=== PATIENT | male | born 1960 | race Caucasian/White ===

== ENCOUNTER 2016-08-07 07:19 | Day surgery (SDC) | payer OTHER ==
[2016-08-06 11:04] VITALS: BMI 20.3
--- NOTE | 2016-08-07 06:22 | HP ---
History & Physical Update - History History: No Change - Physical Physical: No Change - Assessment Assessment: No Change - Plan Plan: No Change
[~2016-08-07 07:19] MED LIST: CYCLOPENTOLATE HCL 1% OPHTH SOLN 2 ML BOTTLE OP SCH; MOXIFLOXACIN HCL 0.5% OPHTHALMIC 3 ML BOTTLE OP SCH; PHENYLEPHRINE 2.5% OPHTH SOLN 15 ML BOTTLE OP SCH; TOBRA 0.3%/DEXAMETH 0.1% OPHTHALMIC SUSP 2.5 ML BTL TP ONE; TROPICAMIDE 1% OPHTH SOLN 15 ML BOTTLE OP SCH
[2016-08-07] MEDS ORDERED: TRYPAN BLUE 0.5 ML DISP.SYRIN ONE (07:34)
[2016-08-07] MEDS ORDERED: LIDOCAINE HCL/PF 1% SDV 5ML VIAL ONE (07:34)
[2016-08-07] MEDS ORDERED: TOBRA 0.3%/DEXAMETH 0.1% OPHTHALMIC SUSP 2.5 ML BTL ONE (07:34)
[2016-08-07 07:36] VITALS: TEMP 97.9
[2016-08-07] MEDS ORDERED: MOXIFLOXACIN HCL 0.5% OPHTHALMIC 3 ML BOTTLE OS ONE ×3 (07:50→08:10)
[2016-08-07] MEDS ORDERED: PHENYLEPHRINE 2.5% OPHTH SOLN 15 ML BOTTLE OS ONE ×3 (07:50→08:10)
[2016-08-07] MEDS ORDERED: CYCLOPENTOLATE HCL 1% OPHTH SOLN 2 ML BOTTLE OS ONE ×3 (07:50→08:10)
[2016-08-07] MEDS ORDERED: TROPICAMIDE 1% OPHTH SOLN 15 ML BOTTLE OS ONE ×3 (07:50→08:10)
[2016-08-07] MEDS ORDERED: MIDAZOLAM HCL 2 MG/2 ML SINGLE DOSE VIAL ONE (09:18)
[2016-08-07] MEDS ORDERED: TETRACAINE 0.5% OPHTH SOLN 2 ML BOTTLE OS ONE (09:32)
[2016-08-07] MEDS ORDERED: POVIDONE-IODINE 5% OPHTHALMIC PREP 30 ML SOLUTION OS ONE (09:36)
[2016-08-07] MEDS ORDERED: EPINEPHrine/PF 1 MG/1 ML (1:1,000) AMPULE SQ ONE (09:44)
[2016-08-07] MEDS ORDERED: LIDOCAINE HCL 1% PRESERVATIVE FREE - 30ML VIAL IO ONE (09:44)
[2016-08-07] MEDS ORDERED: BSS (NA/CA/MG/K) BALANCED SALT SOLUTION OPHTH SOLN 15 ML BOTTLE OS ONE (09:44)
[2016-08-07] MEDS ORDERED: CHONDROITIN SU A/HYALUR SOD 1 KIT IO ONE (09:44)
[2016-08-07] MEDS ORDERED: TRYPAN BLUE 0.5 ML DISP.SYRIN IO ONE (09:44)
[2016-08-07] MEDS ORDERED: TOBRA 0.3%/DEXAMETH 0.1% OPHTHALMIC SUSP 2.5 ML BTL TP ONE (10:21)
[2016-08-07 11:53] VITALS: BP 126/78; PULSE 60
--- NOTE | 2016-08-08 12:55 | OP ---
DATE OF OPERATION: 08/07/2016 SURGEON: Fede Joseph MD PREOPERATIVE DIAGNOSIS: Cataract, left eye. OPERATION: Phacoemulsification and intraocular lens implantation, left eye. POSTOPERATIVE DIAGNOSIS: Cataract, left eye. ANESTHESIA: Topical. COMPLICATIONS: None. BLOOD LOSS: None. SPECIMENS: None. BRIEF HISTORY: The patient is a 56-year-old man with a past medical history of high cholesterol who presented with decreased vision in the left eye down to 20/40 due to a 1+ nuclear sclerotic lens with anterior cortical changes and posterior changes. After the risks, benefits, and alternatives to cataract surgery were discussed with the patient, he consented to surgery for the left eye. The patient was brought to the operating room and prepped and draped in the usual sterile fashion and the eyelid speculum was inserted in the left eye. A paracentesis was made and the anterior chamber was inflated with nonpreserved lidocaine. This was followed by injection of air, trypan blue dye, and Viscoat. At this point, due to the poorly dilating pupil down to 4 mm, it was determined to use 5 iris hooks in order to enlarge and stabilize the iris. This was done without incident. A groove was made into superotemporal clear cornea which was tunneled forward with a crescent blade. The anterior chamber was entered with a 2.75 keratome. The cystotome was used to make an incision in the center of the capsule and a continuous curvilinear capsulorrhexis was created. The lens was hydrodissected until it was found to rotate freely within the capsular bag. Phacoemulsification was then used to remove the lens in its entirety. Irrigation and aspiration were used to remove residual cortical material. At this point, it was noticed that there was a tear in the anterior capsule close to the paracentesis. This was picked up with the capsulorrhexis forceps and evened out with the rest of the capsulorrhexis without incident so that there was no longer a rent. The anterior chamber and capsular bag were reinflated with Provisc and a 21.0-diopter SN60WF AcrySof intraocular lens was injected into the capsular bag using the monarch injector. The lens was dialed into place using a Sinskey hook. Irrigation and aspiration were used to remove residual viscoelastic. The 5 previously placed iris hooks were removed without incident. The wound was stromally hydrated until it was found to be watertight and the eye was noted to have an appropriate pressure. The lid speculum was removed from the eye and TobraDex drops and a clear shield were placed over the left eye. The patient was transferred to the recovery room in stable condition and will follow up tomorrow. FEDE JOSEPH M.D. [id number] MTDD
== END 2016-08-07 11:10 | disposition home or self-care (01) ==
LOC: JASU-SURG 07:19
PROVIDERS: ATTEND Ophthalmology
PROC: 08RK3JZ Replacement of Left Lens with Synthetic Substitute, Percutaneous Approach (ICD-10-PCS; principal; 2016-08-07 09:00)
DX: H25.12 Age-related nuclear cataract, left eye (principal); H57.04 Mydriasis

== ENCOUNTER 2019-04-23 05:25 | Day surgery (SDC) | payer OTHER ==
[2019-04-22 17:22] VITALS: BMI 20.9
[2019-04-23] MEDS ORDERED: mitoMYcin 40 MG/50 ML DISP.SYRIN (FOR OR USE) IC ONE (14:00)
[2019-04-23] MEDS ORDERED: MIDAZOLAM HCL 2 MG/2 ML SINGLE DOSE VIAL ONE (14:54)
[2019-04-23] MEDS ORDERED: PROPOFOL 20 ML ONE (14:54)
[2019-04-23] MEDS ORDERED: ACETAMINOPHEN 1000 MG/100 ML VIAL (NON FORMULARY) IVPB ONE (14:58)
--- NOTE | 2019-04-23 14:59 | HP ---
History & Physical Update - History History: No Change - Physical Physical: No Change - Assessment Assessment: No Change - Plan Plan: No Change
[2019-04-23] MEDS ORDERED: DEXTROSE 5%-0.45% SALINE 1,000 ML IV SCH (15:00)
[2019-04-23] MEDS ORDERED: ceFAZolin SODIUM 1 GM VIAL ONE (15:22)
[2019-04-23] MEDS ORDERED: ceFAZolin SODIUM 1 GM VIAL IVPB ONE (15:32)
[2019-04-23] MEDS ORDERED: ACETAMINOPHEN INJECTION 100 ML IVPB ONE (16:03)
--- NOTE | 2019-04-23 16:43 | OP ---
DATE OF OPERATION: 04/23/2019 PREOPERATIVE DIAGNOSIS: Bladder cancer, lateral sidewall. POSTOPERATIVE DIAGNOSIS: Bladder cancer, lateral sidewall. PROCEDURE: Cystoscopy, transurethral resection of bladder tumor. ANESTHESIA: General. FINDINGS: A papillary tumor on the left bladder neck and lateral wall. SPECIMEN: Parts of bladder tumor. ESTIMATED BLOOD LOSS: Minimal. DRAINS: Sandhu catheter. PREOPERATIVE INDICATIONS: Patient is a 58-year-old male who presents with gross hematuria. He is a longtime smoker. The CAT scan was negative; however, cystoscopy in the office revealed a large papillary tumor along the left side of his bladder. DESCRIPTION OF PROCEDURE: The patient was brought to the OR. Placed on the table in the supine position. Given general anesthesia and IV antibiotics and placed in a modified lithotomy position. The groin was prepped and draped sterilely. Cystoscopy was performed. The urethra and the prostate appeared to be unremarkable. The bladder was examined. There were mild trabeculations throughout. The large papillary bladder tumor that was seen in the office was again seen from the left bladder neck posteriorly to the left posterior wall. Bipolar unit was used, and the tumor was resected as well as muscularis tumor below the tumor. During 1 portion of the resection, an obturator reflex was encountered despite the use of a bipolar unit. This created movement of his leg, which created deeper resection in his lateral/bladder wall than intended. No evidence of bleeding was seen. The bladder itself maintained the fluid, and his abdomen remained flat and soft. However, because of this, intended mitomycin was not given. The bladder tumors were irrigated out using [facility] evacuator. Again, the scope was replaced, and no evidence of bleeding was seen. The area of resection was very distal in the bladder at the bladder neck. An 18-Slovak Sandhu catheter was left in place for postoperative urinary drainage, and clear efflux was seen. Both UOs were examined after the resection as well and were well away from the area of resection and had clear efflux bilaterally. Patient was woken up, sent to the recovery room with a Sandhu catheter. HARDIK FELDER M.D. [id number]
[2019-04-23 18:36] VITALS: BP 145/80; PULSE 67; TEMP 98
--- NOTE | 2019-04-27 15:50 | PATH ---
Surgical Pathology Report Patient Name: ERIC VEGA [facility]. Rec. #: [id number] /Age/Gender: 1960 (Age: 58) / M Account: [id number] Location: [facility] SURGICAL Taken: 04/23/2019 Received: 04/24/2019 Reported: 04/27/2019 Physicians: Sudhakar Kirk M.D. Specimen(s) Received BLADDER CHIPS Clinical History Bladder cancer Final Diagnosis BLADDER CHIPS, TRANSURETHRAL RESECTION OF BLADDER TUMOR: LOW GRADE PAPILLARY UROTHELIAL CARCINOMA, NON-INVASIVE. MUSCULARIS PROPRIA IDENTIFIED. NO FLAT CARCINOMA IN SITU (CIS) IDENTIFIED. Comment: Office of Dr. Kirk informed that significant findings will be faxed ([employer]). Electronically Signed Carmel Medina M.D. Gross Description Received in formalin labeled "bladder chips," is a 2.0 x 1.3 x 0.2 cm aggregate of rodriguez soft tissue fragments. The formalin is filtered and the specimen is entirely submitted in one cassette. /04/24/2019 saudi04/24/2019
== END 2019-04-23 18:30 | disposition home or self-care (01) ==
LOC: JASU-SURG 05:25
PROVIDERS: ATTEND Urology
PROC: 0T5B8ZZ Destruction of Bladder, Via Natural or Artificial Opening Endoscopic (ICD-10-PCS; principal; 2019-04-23 14:00)
DX: C67.2 Malignant neoplasm of lateral wall of bladder (principal)
CPT/HCPCS: 88304-TC; 94760; J0131